=== PATIENT | female | born 1965 | race Caucasian/White ===

== ENCOUNTER → 2016-06-19 | Outpatient (REF) | payer OTHER ==
[2016-06-19 14:03] LABS: BASO # 0.1 K/mm3 (0.0-0.2); BASO % 1.3 % (0.0-1.0); EOS # 0.2 K/mm3 (0.0-0.50); EOS % 4.8 % (0.0-3.0); LARGE UNSTAINED CELL # 0.1 K/mm3 (0.0-0.4); LYMPH # 2.2 K/mm3 (1.5-4.5); LYMPH % 48.1 % (24.0-44.0); MEAN CORPUSCULAR HEMOGLOBIN 29.7 pg (27.0-33.0); MEAN CORPUSCULAR HGB CONC 33.2 g/dl (32.0-36.5); MEAN CORPUSCULAR VOLUME 89.4 fl (80.0-96.0); MONO # 0.2 K/mm3 (0.0-0.8); MONO % 5.6 % (0.0-5.0); NEUTROPHILS # 1.6 K/mm3 (1.8-7.7); NEUTROPHILS % 37.2 % (36.0-66.0); PLATELET COUNT, AUTOMATED 364 k/mm3 (150-450); RED CELL DISTRIBUTION WIDTH 13.6 % (11.5-14.5); WHITE BLOOD COUNT 4.3 K/mm3 (4.0-10.0)
[2016-06-19 14:27] LABS: ALBUMIN 3.9 GM/DL (3.2-5.2); ALBUMIN/GLOBULIN RATIO 1.05 (1.00-1.93); ALKALINE PHOSPHATASE 94 U/L (45-117); ALT/SGPT 29 U/L (12-78); ANION GAP 10 MEQ/L (8-16); AST/SGOT 15 U/L (15-37); BILIRUBIN,TOTAL 0.5 MG/DL (0.2-1.0); BLOOD UREA NITROGEN 14 MG/DL (7-18); CARBON DIOXIDE LEVEL 26 MEQ/L (21-32); CHLORIDE LEVEL 105 MEQ/L (98-107); CHOLESTEROL LEVEL 205 MG/DL (<200); CREATININE FOR GFR 0.91 MG/DL (0.55-1.02); GLOMERULAR FILTRATION RATE > 60.0 (>51); GLUCOSE, FASTING 87 MG/DL (70-105); POTASSIUM SERUM 4.2 MEQ/L (3.5-5.1); SODIUM LEVEL 141 MEQ/L (136-145); TOTAL PROTEIN 7.6 GM/DL (6.4-8.2); TRIGLYCERIDES LEVEL 93 MG/DL (<150)
== END ==
LOC: M LABDRAW1 13:38
PROVIDERS: ATTEND Family Medicine
DX: Z00.00 Encounter for general adult medical examination without abnormal findings (principal); Z11.3 Encounter for screening for infections with a predominantly sexual mode of transmission

== ENCOUNTER → 2016-07-15 | Outpatient (CLI) | payer OTHER ==
[~2016-07-15] VITALS: Ht 165.1 cm; Wt 83.9 kg
[~2016-07-15] MED LIST: AMLO5TAB2 PO; NS 1,000 ML IV SCH; VENL75TA2 PO
--- NOTE | 2016-07-15 10:50 | ROOR ---
Patient Name: Catina Rizvi Procedure Date: 07/15/2016 10:16 AM Date of : 1965 Age: 51 Room: [facility] Gender: Female Note Status: Finalized Procedure: Colonoscopy Indications: Screening for colorectal malignant neoplasm Providers: Anthony Ewing MD Referring MD: Millie Perez MD Requesting Provider: Medicines: Monitored Anesthesia Care Complications: No immediate complications. Procedure: Pre-Anesthesia Assessment: - Prior to the procedure, a History and Physical was performed, and patient medications and allergies were reviewed. The patient is competent. The risks and benefits of the procedure and the sedation options and risks were discussed with the patient. All questions were answered and informed consent was obtained. Patient identification and proposed procedure were verified by the physician, the nurse and the anesthesiologist in the endoscopy suite. Mental Status Examination: alert and oriented. Airway Examination: normal oropharyngeal airway and neck mobility. Respiratory Examination: clear to auscultation. CV Examination: normal. Prophylactic Antibiotics: The patient does not require prophylactic antibiotics. Prior Anticoagulants: The patient has taken no previous anticoagulant or antiplatelet agents. ASA Grade Assessment: II - A patient with mild systemic disease. After reviewing the risks and benefits, the patient was deemed in satisfactory condition to undergo the procedure. The anesthesia plan was to use monitored anesthesia care (MAC). Immediately prior to administration of medications, the patient was re-assessed for adequacy to receive sedatives. The heart rate, respiratory rate, oxygen saturations, blood pressure, adequacy of pulmonary ventilation, and response to care were monitored throughout the procedure. The physical status of the patient was re-assessed after the procedure. The Colonoscope was introduced through the anus and advanced to the cecum, identified by appendiceal orifice and ileocecal valve. The colonoscopy was technically difficult and complex due to significant looping. The patient tolerated the procedure well. The quality of the bowel preparation was good. Findings: The perianal and digital rectal examinations were normal. The colon (entire examined portion) appeared normal. No additional abnormalities were found on retroflexion. Impression: - The entire examined colon is normal. - No specimens collected. Recommendation: - Discharge patient to home (ambulatory). - Repeat colonoscopy in 10 years for screening purposes. Anthony Ewing MD Anthony Ewing MD 07/15/2016 10:49:51 AM This report has been signed electronically. Number of Addenda: 0 Note Initiated On: 07/15/2016 10:16 AM Estimated Blood Loss: Estimated blood loss: none.
[2016-07-15 11:15] VITALS: BP 158/98
== END | disposition home or self-care (01) ==
LOC: M OPP 08:50
PROVIDERS: ATTEND Surgery
DX: Z12.11 Encounter for screening for malignant neoplasm of colon (principal); I10 Essential (primary) hypertension; R12 Heartburn; F41.9 Anxiety disorder, unspecified; Z79.899 Other long term (current) drug therapy
CPT/HCPCS: 99156; 99157; G0121

== ENCOUNTER → 2016-12-02 | Outpatient (REF) | payer OTHER ==
[~2016-12-02] MED LIST changes: -NS 1,000 ML IV SCH
[2016-12-02 11:39] LABS: ALBUMIN 3.8 GM/DL (3.2-5.2); ALKALINE PHOSPHATASE 97 U/L (45-117); ALT/SGPT 29 U/L (12-78); ANION GAP 6 MEQ/L (8-16); AST/SGOT 13 U/L (15-37); BILIRUBIN,TOTAL 0.5 MG/DL (0.2-1.0); BLOOD UREA NITROGEN 14 MG/DL (7-18); CALCIUM LEVEL 9.5 MG/DL (8.5-10.1); CARBON DIOXIDE LEVEL 28 MEQ/L (21-32); CHLORIDE LEVEL 106 MEQ/L (98-107); CREATININE FOR GFR 0.86 MG/DL (0.55-1.02); GLOMERULAR FILTRATION RATE > 60.0 (>51); GLUCOSE, FASTING 96 MG/DL (70-105); POTASSIUM SERUM 4.5 MEQ/L (3.5-5.1); SODIUM LEVEL 140 MEQ/L (136-145); TOTAL PROTEIN 7.6 GM/DL (6.4-8.2)
[2016-12-09 00:07] LABS: Lyme Disease IgG/IgM Antibodie <0.91 ISR (0.00-0.90); Lyme Disease IgM Ab Quantitati <0.80 index (0.00-0.79); SJOGREN'S ANTI SS-A <0.2 AI (0.0-0.9); SJOGREN'S ANTI SS-B <0.2 AI (0.0-0.9)
== END ==
LOC: M LABDRAW1 11:04
PROVIDERS: ATTEND Family Medicine
DX: M12.9 Arthropathy, unspecified (principal); E55.9 Vitamin D deficiency, unspecified

== ENCOUNTER → 2017-12-06 | Outpatient (REF) | payer OTHER ==
[2017-12-09 14:44] LABS: HPV HYBRID CAPTURE II Negative (Negative)
== END ==
LOC: M LAB REF 13:59
DX: Z12.4 Encounter for screening for malignant neoplasm of cervix (principal); N88.8 Other specified noninflammatory disorders of cervix uteri
CPT/HCPCS: G0123

== ENCOUNTER → 2018-03-04 | Outpatient (CLI) | payer OTHER | LOC: M LRY 18:25 | DX: S59.912A Unspecified injury of left forearm, initial encounter (principal); X58.XXXA Exposure to other specified factors, initial encounter; Y92.9 Unspecified place or not applicable | CPT/HCPCS: 73090; G0463 ==

== ENCOUNTER 2019-04-17 06:37 | Inpatient (IN) | payer OTHER ==
[~2019-04-17] VITALS: Ht 165.1 cm; Wt 86.1 kg
[~2019-04-17 06:37] MED LIST changes: -AMLO5TAB2 PO; +AMLO5TAB6 PO
[2019-04-17 07:30] LABS: BASO % 0.4 % (0.0-1.0); EOS % 0.1 % (0.0-3.0); HEMATOCRIT 37.8 % (36.0-47.0); HEMOGLOBIN 12.7 g/dl (12.0-15.5); LYMPH # 0.8 10^3/uL (1.5-5.0); LYMPH % 8.8 % (24.0-44.0); MEAN CORPUSCULAR HGB CONC 33.6 g/dl (32.0-36.5); MEAN CORPUSCULAR VOLUME 89.4 fl (80.0-96.0); MONO # 0.5 10^3/uL (0.0-0.8); MONO % 4.8 % (0.0-5.0); NEUTROPHILS # 8.2 10^3/uL (1.5-8.5); NEUTROPHILS % 85.6 % (36.0-66.0); PLATELET COUNT, AUTOMATED 293 10^3/uL (150-450); RED BLOOD COUNT 4.23 10^6/uL (4.00-5.40); WHITE BLOOD COUNT 9.5 10^3/uL (4.0-10.0)
[2019-04-17] MEDS ORDERED: ISOVUE-370 76% 100ML VIAL (Q9967) As Ordered ONE (07:37)
[2019-04-17] MEDS ORDERED: KETOROLAC 30 MG/ML VIAL (J1885) IV ONE (07:45)
[2019-04-17 07:50] LABS: BLOOD UREA NITROGEN 15 MG/DL (7-18); CALCIUM LEVEL 9.1 MG/DL (8.5-10.1); CARBON DIOXIDE LEVEL 26 MEQ/L (21-32); CHLORIDE LEVEL 104 MEQ/L (98-107); CREATININE FOR GFR 0.79 MG/DL (0.55-1.30); GLOMERULAR FILTRATION RATE > 60.0 (>51); GLUCOSE, FASTING 149 MG/DL (70-100); POTASSIUM SERUM 3.7 MEQ/L (3.5-5.1); SODIUM LEVEL 137 MEQ/L (136-145)
[2019-04-17 07:51] LABS: ALBUMIN 3.6 GM/DL (3.2-5.2); ALT/SGPT 23 U/L (12-78); BILIRUBIN,DIRECT 0.1 MG/DL (0.0-0.2); BILIRUBIN,TOTAL 0.5 MG/DL (0.2-1.0); LIPASE 88 U/L (73-393); TOTAL PROTEIN 6.7 GM/DL (6.4-8.2)
--- NOTE | 2019-04-17 08:49 | REP ---
CT THORACIC ANGIOGRAM: With IV contrast. HISTORY: Midline abdominal pain. COMPARISON STUDIES: No comparison study. CONTRAST DOSE: 100 mL of Isovue [address] TECHNIQUE: Helical scanning is acquired and overlapping 1.5 mm and contiguous 3 mm axial images are reformatted. In addition, maximum intensity projection and multiplanar re-formation images are generated in sagittal and coronal imaging projections. CT ANGIOGRAPHIC FINDINGS: There is good opacification of the thoracic aorta. There is no evidence of aneurysm or dissection. Pulmonary arterial tree is well opacified as well. No vessel cutoff or filling defect is seen to suggest pulmonary embolism. Maximum intensity projection images show no vascular abnormality. There is a granulomatous calcification in the right upper lobe. The lung wynn are otherwise clear. There is no evidence of pleural or pericardial effusion. No hilar or mediastinal mass or adenopathy is observed. Visualized upper abdominal structures are remarkable for cholelithiasis and gallbladder wall thickening with pericholecystic fluid as described in the abdominal CT report. 3D surface rendered CT angiography images of the thoracoabdominal aorta and pelvic arteries are normal except that the renal arteries are duplicated bilaterally. No significant bony abnormality is seen. IMPRESSION: No CT evidence of pulmonary embolus or thoracic or abdominal aortic disease. Duplicated renal arteries bilaterally. Cholelithiasis with gallbladder wall thickening and pericholecystic fluid. Lung wynn are clear. Electronically Signed by Bernabe Cowan MD 04/17/2019 09:11 A
--- NOTE | 2019-04-17 09:24 | REP ---
CT abdomen and pelvis with IV but without oral contrast: History: Midline abdominal pain. No comparison abdomen CT. CT contrast dose: 100 mL of intravenous Isovue 370. CT findings: Digital preliminary rn long term care radiograph shows nonspecific central abdominal small bowel air filled loops. Axial CT images demonstrate mild diffuse fatty infiltration of the liver. The spleen is unremarkable. The gallbladder contains several large calculi which contain some air density centrally within them. This consistent with cholelithiasis. There is pericholecystic fluid. There is increased attenuation in the liver parenchyma adjacent to the gallbladder which is a typical pattern of fat sparing. No pancreatic abnormalities observed. No adrenal lesion is observed. The kidneys enhance symmetrically. They are morphologically intact. No retroperitoneal mass or adenopathy is seen. A normal appendix is seen in the right lower quadrant. The renal arteries are duplicated bilaterally. No uterine, ovarian, or urinary bladder abnormality is seen. No abdominal wall defect is seen. Small and large intestinal bowel loops are unremarkable except for air-fluid levels in the central abdominal small bowel loops. Impression: Multiple large gallstones in the gallbladder. Gallbladder wall thickening and pericholecystic fluid is seen. There is fatty infiltration of the liver with areas of fat sparing adjacent to the gallbladder. Small bowel gas pattern suggests ileus. Electronically Signed by Bernabe Cowan MD 04/17/2019 09:54 A
[2019-04-17] MEDS ORDERED: ONDANSETRON 4MG/2ML VIAL (J2405) IV ONE (10:45)
[2019-04-17] MEDS ORDERED: MORPHINE 4 MG/ML 1ML VIAL/SYRINGE (J2270) IV ONE (10:45)
[2019-04-17] MEDS ORDERED: C 50TAB PO (11:11)
[2019-04-17] MEDS ORDERED: VITA-144 PO (11:11)
[2019-04-17] MEDS ORDERED: MAGN400T3 PO (11:11)
[2019-04-17] MEDS ORDERED: MORPHINE 2 MG/ML 1ML VIAL (J2270) IV PRN (12:45)
[2019-04-17] MEDS ORDERED: ONDANSETRON 4MG/2ML VIAL (J2405) IV PRN ×2 (12:45→21:45)
[2019-04-17 13:15] VITALS: BP 157/71
[2019-04-17] MEDS: LR 1,000 ML IV SCH ×2 (13:35→21:00)
[2019-04-17] MEDS: KETOROLAC 30 MG/ML VIAL (J1885) IV PRN ×2 (13:45→14:41)
[2019-04-17] MEDS: AMPICILLIN SOD/SULBACTAM SOD 3 GM in D5W MINI-BAG PLUS 100 ML IV SCH ×2 (13:45→19:16)
--- NOTE | 2019-04-17 14:13 | HPE ---
DATE OF ADMISSION: 04/17/2019 ADMITTING DIAGNOSIS: Cholelithiasis with acute cholecystitis. HISTORY OF PRESENT ILLNESS: The patient reports that she has generally been in good health. On Wednesday, April 14 at about 06:00 p.m.. she noted the onset of severe epigastric and mid abdominal discomfort. She reports having had a burrito wrap for dinner and the pain began shortly thereafter. She denied any nausea or vomiting. The discomfort persisted overnight on Wednesday into Wednesday. Because of her continuing pain, she did not go to work on Wednesday. By Wednesday evening she reports that she felt better. She went to work Wednesday. 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 At about lunchtime, she had some rotisserie chicken and reports that her pain came back at about 3 o'clock in the afternoon on Wednesday the . Pain became very severe again in the epigastrium and this persisted all night. She was unable to sleep. She did not have definite nausea or vomiting but felt full and she reports that she did try to make herself vomit at one point. She did not notice fevers or chills. She has not noticed any change in the color of her urine. She had some [place] tea at about 4 o'clock in the morning on the but as her pain persisted she presented to the emergency department at about 06:30 in the morning. In the emergency department, she had some laboratory studies done. She was found to have tenderness on exam in the right subcostal area and in the epigastrium. A CT scan of the abdomen and pelvis was obtained, which revealed multiple large gallstones in the gallbladder with gallbladder wall thickening and pericholecystic fluid. I was consulted and the patient is now admitted with a diagnosis of cholelithiasis with acute cholecystitis for urgent cholecystectomy. ALLERGIES: The patient denies any known drug allergies. MEDICATIONS: The patient is only taking some vitamins and these include vitamin C, some magnesium oxide and some vitamin D3. MEDICAL HISTORY: The patient reports that she is healthy with no active medical problems. She specifically denies any heart, lung or endocrine issues. PAST SURGICAL HISTORY: The patient underwent a surgical procedure in 2000 for some sort of bladder suspension for stress urinary incontinence or cystocele. FAMILY HISTORY: Noncontributory. SOCIAL HISTORY: The patient denies any tobacco use or alcohol intake. REVIEW OF SYSTEMS: The patient denies any history of hepatitis, pancreatitis, or yellow jaundice. She denies any chest pain or palpitations. She has no shortness of breath or wheezing. She denies any melena or hematochezia. She had a bowel movement that was fairly normal 2 days ago. There is no history of peptic ulcer disease. There is no history of seizure, stroke or TIA. She has no history of deep vein thrombosis (DVT) or pulmonary embolus. She has no endocrine or orthopedic issues. PHYSICAL EXAMINATION: The patient is lying quietly on the hospital stretcher when I entered the room. She appears to be resting comfortably and reports that she had some morphine fairly recently. Vital signs show a temperature of 98.3, pulse of 54, respirations of 18 and blood pressure of 154/72. The patient is alert and oriented. Skin is warm and dry. Sclerae are anicteric. Mucous membranes are moist. Neck is supple without mass. She has no cervical bruit. Heart exam shows a regular rate and rhythm and she is not tachycardiac. The lungs are clear to auscultation bilaterally. The abdomen is flat. She does have a few soft bowel sounds present on auscultation. There is no tympany to percussion and no tenderness to percussion. On palpation the abdomen is soft throughout. She has some mild to moderate direct tenderness in the right subcostal region approximately 10-12 cm to the right of the midline. There is no mass appreciated and she has no guarding or rebound. Extremities show palpable radial and pedal pulses with no peripheral edema. LABORATORY STUDIES: CBC showing a white count of 9.5 with a differential showing 86% neutrophils, 9% lymphocytes of 5% monocytes. Hemoglobin is 13 with a hematocrit of 38 and platelet count is 293,000. Chemistry profile shows sodium of 137, potassium 3.7, chloride 104, CO2 of 26, BUN of 15, creatinine of 0.8 and a glucose of 149. Liver function tests are entirely normal. Lipase is normal at 88. Urinalysis showed a pH of 5, specific gravity 1.034. She had trace ketones and 1+ protein and the remainder of the urinalysis was normal. Imaging included a CT angiogram of the chest. This showed no evidence of pulmonary embolus or thoracic or abdominal aortic disease. Cholelithiasis with gallbladder wall thickening was noted. The lung wynn were clear. Her CT scan of the abdomen showed multiple large gallstones with gallbladder wall thickening. There was some fatty infiltration of the liver noted. IMPRESSION: The patient presented with greater than 12 hours of persistent severe epigastric and right upper quadrant pain. Her exam shows tenderness in the right subcostal area. She does seem to be somewhat more comfortable than what she reported when she first presented to the emergency room, but her CT scan does show large gallstones with gallbladder wall thickening and pericholecystic fluid. I think therefore the diagnosis of acute cholecystitis secondary to cholelithiasis is appropriate. PLAN: The patient was counseled that the best approach would be to proceed to cholecystectomy at the earliest opportunity. She will be kept n.p.o. for the rest of the day and started on antibiotics. She will receive some IV fluid maintenance. I counseled her for a laparoscopic cholecystectomy and she will be added onto the OR schedule to have that done later today. KIMBER
[2019-04-17 16:11] VITALS: BP 157/72
[2019-04-17 17:30] VITALS: BP 110/60
[2019-04-17] MEDS ORDERED: PROPOFOL 200 MG/20 ML VIAL As Ordered ONE (17:37)
[2019-04-17] MEDS ORDERED: ROCURONIUM BROMIDE 50 MG/5 ML VIAL As Ordered ONE ×2 (17:37→19:26)
[2019-04-17] MEDS ORDERED: MIDAZOLAM INJ 2 MG/2 ML VIAL (J2250) As Ordered ONE (17:37)
[2019-04-17] MEDS ORDERED: fentaNYL 250 MCG/5 ML INJECTION (J3010) As Ordered ONE (17:37)
[2019-04-17] MEDS ORDERED: LIDOCAINE 2% INJ 100 MG/5 ML SDV (FOR ANES.) As Ordered ONE (17:37)
[2019-04-17] MEDS ORDERED: BUPIVACAINE HCL 0.25% 30 ML VIAL As Ordered ONE (17:40)
[2019-04-17 18:20] VITALS: BP 150/69
[2019-04-17] MEDS ORDERED: UNASYN 1.5 GM VIAL As Ordered ONE (19:15)
[2019-04-17] MEDS ORDERED: dexameTHASONE 4 MG/ML 1ML VIAL (J1100) As Ordered ONE (19:28)
[2019-04-17] MEDS ORDERED: ONDANSETRON 4MG/2ML VIAL (J2405) As Ordered ONE (19:29)
[2019-04-17] MEDS ORDERED: ACETAMINOPHEN 1000MG 100ML IV BTL (OFIRMEV) (J0131 PER 10MG) As Ordered ONE (19:32)
[2019-04-17] MEDS ORDERED: MORPHINE 10 MG/ML 1ML VIAL (J2270) As Ordered ONE (19:52)
[2019-04-17] MEDS ORDERED: SUGAMMADEX SODIUM 500 MG/5 ML VIAL (BRIDION) As Ordered ONE (20:39)
[2019-04-17] MEDS ORDERED: KETOROLAC 60 MG/2 ML VIAL (J1885) As Ordered ONE (21:04)
[2019-04-17] MEDS ORDERED: LR 1,000 ML IV SCH (21:45)
[2019-04-17] MEDS ORDERED: HYDROMORPHONE HCL 0.5 MG/ 0.5 ML SYRINGE (J1170 PER 1) IV PRN (21:45)
[2019-04-17] MEDS ORDERED: fentaNYL 100 MCG/2 ML INJECTION (J3010) IV PRN (21:45)
[2019-04-17] MEDS ORDERED: ACETAMINOPHEN TAB 650MG DOSE (2X325MG) PO PRN (21:45)
[2019-04-17] MEDS ORDERED: NORCO, ANEXSIA 5/325MG TABLET (HYDROcodone/ACETAMINOPHEN) PO PRN (21:45)
[2019-04-17] MEDS ORDERED: PERCOCET 5MG/325MG TAB PO PRN (21:45)
[2019-04-17 22:30] VITALS: BP 110/61
[2019-04-17 23:00] VITALS: BP 108/53
[2019-04-18] VITALS (9 sets, daily range): BP systolic 102–138; BP diastolic 53–83
[2019-04-18] MEDS: LR 1,000 ML IV SCH ×2 (00:30→09:40)
[2019-04-18] MEDS: AMPICILLIN SOD/SULBACTAM SOD 3 GM in D5W MINI-BAG PLUS 100 ML IV SCH ×4 (01:17→18:41)
[2019-04-18 08:08] LABS: HEMATOCRIT 33.3 % (36.0-47.0); LYMPH # 0.7 10^3/uL (1.5-5.0); LYMPH % 9.3 % (24.0-44.0); MEAN CORPUSCULAR HEMOGLOBIN 29.6 pg (27.0-33.0); MEAN CORPUSCULAR VOLUME 89.8 fl (80.0-96.0); MONO # 0.5 10^3/uL (0.0-0.8); MONO % 5.7 % (0.0-5.0); NEUTROPHILS # 6.7 10^3/uL (1.5-8.5); NEUTROPHILS % 84.7 % (36.0-66.0); PLATELET COUNT, AUTOMATED 252 10^3/uL (150-450); RED BLOOD COUNT 3.71 10^6/uL (4.00-5.40)
[2019-04-18] MEDS: KETOROLAC 30 MG/ML VIAL (J1885) IV PRN ×2 (08:46→14:48)
[2019-04-18 08:50] LABS: ALBUMIN 2.7 GM/DL (3.2-5.2); ALT/SGPT 40 U/L (12-78); BILIRUBIN,TOTAL 0.4 MG/DL (0.2-1.0); BLOOD UREA NITROGEN 13 MG/DL (7-18); CALCIUM LEVEL 8.7 MG/DL (8.5-10.1); CARBON DIOXIDE LEVEL 28 MEQ/L (21-32); CHLORIDE LEVEL 104 MEQ/L (98-107); CREATININE FOR GFR 0.74 MG/DL (0.55-1.30); GLOMERULAR FILTRATION RATE > 60.0 (>51); GLUCOSE, FASTING 131 MG/DL (70-100); POTASSIUM SERUM 4.2 MEQ/L (3.5-5.1); SODIUM LEVEL 137 MEQ/L (136-145); TOTAL PROTEIN 5.8 GM/DL (6.4-8.2)
--- NOTE | 2019-04-18 11:56 | RO ---
DATE OF PROCEDURE: 04/17/2019 PREOPERATIVE DIAGNOSIS: Cholelithiasis with acute cholecystitis. POSTOPERATIVE DIAGNOSIS: Cholelithiasis with acute cholecystitis. PROCEDURE PERFORMED: Laparoscopic cholecystectomy. SURGEON: Ramakrishna Ayala MD ANESTHESIA: General. INDICATIONS FOR PROCEDURE: Patient is a 54-year-old woman who noted the onset of some severe epigastric abdominal pain on the evening of Wednesday the 14 of April. This persisted overnight and then seemed to wanes somewhat later on Wednesday the . The pain returned in the afternoon of Wednesday the and has persisted into the morning of the . She has some tenderness in the epigastrium and a CT scan showed multiple gallstones with significant gallbladder wall thickening consistent with acute cholecystitis. The patient was admitted and started on antibiotics and is now for a laparoscopic cholecystectomy. OPERATIVE PROCEDURE: The patient was brought to the operating room and placed on the table in a supine position. She was placed under general endotracheal anesthesia. The patient's abdomen was prepped and draped in a sterile fashion. 0.25% Marcaine was infiltrated at each of the trocar sites. A short supraumbilical midline incision was made and deepened to the fascia. A Veress needle was inserted and after positive hanging drop test, the abdomen was insufflated with carbon dioxide gas. An 11 mm port was placed over a 5 mm scope and advanced through the abdominal wall without difficulty. Initial examination showed a normal-appearing liver. There was abundant omental fat covering the small and large bowel. A portion of the stomach was seen and appeared normal. It was possible to see just the tip of the fundus of the gallbladder and this appeared inflamed with some exudate noted. The patient was tilted slightly to a reverse Trendelenburg position and rolled slightly to the left. Two 5 mm trocars were placed in the right upper quadrant and a third trocar was placed in the left upper quadrant. Graspers were inserted. The patient had some inflammatory attachments of the gallbladder to the surrounding omentum. These were divided with a combination of blunt and cautery dissection. The gallbladder was markedly distended and inflamed. An aspirating needle was inserted and some turbid brownish fluid was suctioned from the gallbladder. Only the tip of the fundus decompressed well and this was grasped and the gallbladder was elevated. There were significant adhesions down the gallbladder to the surrounding omentum and these were broken apart primarily bluntly. Gallbladder wall was markedly thickened with significant pericholecystic inflammatory change. I opened the peritoneum in the region of the gallbladder neck and began to peel away the surrounding pericholecystic fat. The peritoneum was opened up along the medial side of the gallbladder along the edge. The inflamed pericholecystic tissues near the gallbladder neck were peeled away primarily by blunt dissection to create a plane, but some areas were opened using the cautery. Dissection proceeded, though the marked thickening in the pericholecystic tissues made dissection very difficult. I elected to free the gallbladder as much as possible along the medial and lateral aspects. Along the medial aspect a cholecystic artery was transected and this was ultimately controlled using the cautery. The fundus was freed and the gallbladder was partially peeled away from the gallbladder bed. As dissection proceeded I could identify the level of the gallbladder neck where the cystic duct would arise, but this was encased in very dense inflamed tissue such that I could not identify the cystic duct. I therefore transected the gallbladder in the gallbladder neck, leaving a short cup shaped portion of the neck of the gallbladder attached in a surrounding area of inflamed tissue. The gallbladder dissection was then completed removing this from the gallbladder bed and the gallbladder was placed in an Endopouch. The right upper quadrant was copiously irrigated and several small bleeding points along the gallbladder bed were cauterized. I then inspected the small portion of the gallbladder neck that had been left in place. There did appear to be a orifice of the cystic duct contained within this piece of tissue with some backflow of a small amount of bile. With careful dissection, which was both sharp and blunt, I was able to peel the edges of this portion of the neck of the gallbladder away from the underlying fibrotic and inflamed tissue such that I could then place a #0 Vicryl Endoloop around this tissue to close off the cystic duct. This was accomplished and there was no further backflow of bile identified. The right upper quadrant was copiously irrigated with saline until clear. No further bleeding was identified. I elected to place a drain in the subhepatic space. Therefore, a 19-Macanese Abdoul drain was inserted and placed across the subhepatic space to exit out the lateral right upper quadrant trocar site. The patient was returned to a flat position. The abdomen was deflated and the trocars were removed. The gallbladder was recovered through the supraumbilical site. It was necessary to extend the skin and fascial incisions somewhat to allow the very large stones of the gallbladder to pass through the abdominal wall. I would estimate that the stones were up to 3-1/2 cm in maximal diameter. The drain was sutured to the skin with #2-0 silk. The fascia at the midline incision was closed with interrupted simple sutures of #1-0 Vicryl. The subcutaneous tissue was closed with several #2-0 Vicryl. Skin incisions were all closed with buried #4-0 Vicryl and Steri-Strips. The drain site was dressed with a chlorhexidine gluconate OpSite. The drain was connected to a Americo-Shah bulb. The patient tolerated the procedure well without apparent complication. She was awakened in the operating room, extubated and moved to the recovery room in stable condition. KIMBER
[2019-04-18] MEDS ORDERED: SLF 3 ML SYR IV PRN (16:45)
[2019-04-18] MEDS ORDERED: IBUPROFEN 600 MG TAB PO PRN (21:00)
[2019-04-18] MEDS: SLF 3 ML SYR IV SCH (21:34)
[2019-04-19] VITALS: BP 135/73
[2019-04-19] MEDS: AMPICILLIN SOD/SULBACTAM SOD 3 GM in D5W MINI-BAG PLUS 100 ML IV SCH ×2 (00:18→06:18)
[2019-04-19 06:00] VITALS: BP 135/65
[2019-04-19] MEDS: SLF 3 ML SYR IV SCH (06:18)
[2019-04-19 08:00] VITALS: BP 134/72
--- NOTE | 2019-04-19 08:49 | IPN ---
DATE: 04/18/2019 HISTORY: The patient was admitted yesterday with acute cholecystitis secondary to cholelithiasis. She underwent a laparoscopic cholecystectomy with finding of extensive inflammation and scarring around the gallbladder. It was necessary to transect the neck of the gallbladder and then free the edges of the gallbladder neck to place an Endoloop around this to seal the cystic duct. A drain was placed at the conclusion of the procedure. She has done well following surgery. She was continued on antibiotics postoperatively because of some spillage of bile from the gallbladder. Vital signs show that she has been afebrile since surgery. Her pulse is in the 50s and 60s and her blood pressure is normal. Room air oxygenation saturations are normal. Intake and output shows that she has been taking liquids well today. Her drain has had very little out and this is lightly bloody with no bilious coloration. Physical exam shows that she is alert and oriented. She appears much more comfortable compared to yesterday. Heart exam shows a regular rhythm and the lungs are clear. The abdomen is soft and without significant tenderness. Her drain has a minimal amount of pinkish fluid in the bulb. Laboratory studies this morning showed a white count of 8, hemoglobin of 11, hematocrit 33 and a platelet count of 252,000. Differential count showed 85% neutrophils, 9% lymphocytes and 6% monocytes. Her chemistry profile showed normal electrolytes, BUN, creatinine and a glucose of 131. Liver function tests are normal. IMPRESSION: The patient is doing well postoperative day #1 from a difficult laparoscopic cholecystectomy for severe acute cholecystitis. PLAN: The patient will be kept in the hospital another day and I will convert her to an inpatient status. She will be continued on her antibiotics for now and we will monitor the output from her drain. She will be allowed to take a regular diet as tolerated and is encouraged to be up ambulatory.
[2019-04-19] MEDS ORDERED: FLUBLOK(EGG FREE)(QUAD)INFLUENZA VACC 0.5ML SYRINGE (90682)18YRS&OLDER IM ONE (09:00)
== END 2019-04-19 09:50 | disposition home or self-care (01) | DRG 419 ==
LOC: M ED 06:37 → M SDC 12:49 → M PED 13:05 → M SDC 04-18 16:43 → M PED 04-18 16:44 → M SDC 04-19 06:43 → UNDOADMIN 04-19 06:43 → M PED 04-19 06:43 → UNDODISIN 04-19 09:50
PROVIDERS: ADMIT Surgery; ATTEND Surgery
PROC: 0FT44ZZ Resection of Gallbladder, Percutaneous Endoscopic Approach (ICD-10-PCS; principal; 2019-04-17 16:30)
DX: K80.62 Calculus of gallbladder and bile duct with acute cholecystitis without obstruction (principal)

== ENCOUNTER → 2020-08-06 | Outpatient (CLI) | payer OTHER ==
[~2020-08-06] MED LIST changes: +AMLO1TAB24 PO; -AMLO5TAB6 PO; +C 50TAB PO; +MAGN400T3 PO; +VITA-144 PO
[2020-08-06 12:51] LABS: BASO % 0.6 % (0.0-1.0); EOS # 0.1 10^3/uL (0.0-0.5); EOS % 1.3 % (0.0-3.0); HEMATOCRIT 41.4 % (36.0-47.0); HEMOGLOBIN 13.2 g/dl (12.0-15.5); LYMPH # 1.7 10^3/uL (1.5-5.0); LYMPH % 32.1 % (24.0-44.0); MEAN CORPUSCULAR HEMOGLOBIN 28.8 pg (27.0-33.0); MEAN CORPUSCULAR HGB CONC 31.9 g/dl (32.0-36.5); MEAN CORPUSCULAR VOLUME 90.4 fl (80.0-96.0); MONO # 0.4 10^3/uL (0.0-0.8); MONO % 6.5 % (2.0-8.0); NEUTROPHILS # 3.2 10^3/uL (1.5-8.5); NEUTROPHILS % 59.1 % (36.0-66.0); PLATELET COUNT, AUTOMATED 351 10^3/uL (150-450); RED BLOOD COUNT 4.58 10^6/uL (4.00-5.40); WHITE BLOOD COUNT 5.4 10^3/uL (4.0-10.0)
[2020-08-06 13:36] LABS: CHOLESTEROL LEVEL 226 MG/DL (<200); HDL CHOLESTEROL 81 MG/DL (>40); LDL CHOLESTEROL 122 MG/DL (<100); NON-HDL-C 145 MG/DL; RHEUMATOID FACTOR QUANT < 10.0 IU/ML (<15.0); TRIGLYCERIDES LEVEL 114 MG/DL (<150)
[2020-08-07 12:10] LABS: ANTINUCLEAR ANTIBODIES DIRECT Negative (Negative); SJOGREN'S ANTI SS-A <0.2 AI (0.0-0.9); SJOGREN'S ANTI SS-B <0.2 AI (0.0-0.9)
== END ==
LOC: M WUC 10:19
PROVIDERS: ATTEND Family Medicine
DX: M35.00 Sjogren syndrome, unspecified (principal); R03.0 Elevated blood-pressure reading, without diagnosis of hypertension; E55.9 Vitamin D deficiency, unspecified

== ENCOUNTER → 2020-09-05 | Outpatient (CLI) | payer OTHER ==
--- NOTE | 2020-09-05 09:26 | REPMRS ---
Patient History The patient states she has not had a clinical breast exam in over a year. Patient is postmenopausal and is nulliparous. Family history of breast cancer at age 44 in sister. 3D TOMOSYNTHESIS WAS PERFORMED. Volpara breast density b. Digital Woman Screen Mammo: September 05, 2020 - Exam #: [id number] Bilateral CC and MLO view(s) were taken. Technologist: Moraima Buckner, Technologist Prior study comparison: February 18, 2018, bilateral digital mammo screening bilat, performed at [facility]. December 03, 2016, bilateral digital mammo screening bilat, performed at [facility]. August 27, 2015, left breast diagnostic unilateral mammo, performed at [facility]. August 19, 2015, bilateral digital mammo screening bilat, performed at [facility]. FINDINGS: The breast tissue is heterogeneously dense. This may lower the sensitivity of mammography. There has been no change in the appearance of the mammogram from the prior studies. There is a moderate amount of residual fibroglandular tissue which is fairly symmetric. There is no interval development of dominant mass, areas of architectural distortion, or clustered microcalcification typical of malignancy. Assessment: BI-RADS/ACR category 1 mammogram. Negative Mammogram. Recommendation Routine screening mammogram in 1 year (for women over age 40). This mammogram was interpreted with the aid of an FDA-approved computer-aided dectection system. THE LIFETIME RISK OF BREAST CANCER IS 20.2%, THEREFORE SUPPLEMENTAL SCREENING MRI OF THE BREASTS IS RECOMMENDED IN 6 MONTHS. Electronically Signed By: James Negron MD 09/05/20 0258
== END ==
LOC: M WHC 06:51
PROVIDERS: ATTEND Family Medicine
DX: Z12.31 Encounter for screening mammogram for malignant neoplasm of breast (principal); Z80.3 Family history of malignant neoplasm of breast

== ENCOUNTER → 2021-04-03 | Outpatient (CLI) | payer OTHER ==
[~2021-04-03] MED LIST changes: -MAGN400T3 PO; +MAGN400T33 PO; +PROHANCE 279.3MG/ML 15ML VIAL As Ordered ONE; +PROHANCE 279.3MG/ML 5ML VIAL As Ordered ONE
--- NOTE | 2021-04-04 09:09 | REP ---
INDICATION: SCREENING, FAMILY HISTORY BREAST CA. COMPARISON: Mammogram 09/05/2020. TECHNIQUE: Three Elizabeth MRI imaging was performed with a dedicated breast coil. Axial, coronal, and sagittal T1 and T2 weighted scans were obtained with and without fat saturation in the usual fashion. The study includes dynamically acquired post gadolinium-enhanced imaging with image subtraction. Maximum intensity projection and multi planar reformation imaging is included as well. This study is interpreted with the aid of Helixis, an FDA approved computer aided detection (CAD) software program, on a dedicated breast MRI workstation. The gadolinium enhancement dose is 16 mL of intravenous ProHance. FINDINGS: Mild scattered fibroglandular tissue is present. There is mild background parenchymal enhancement. There is no axillary adenopathy. Multiple subcentimeter cysts are seen bilaterally. There is no suspicious enhancing mass or morphologic abnormality. IMPRESSION: BI-RADS category 2, benign bilateral breast MRI. Multiple subcentimeter cysts are seen bilaterally. There is no suspicious enhancing mass or morphologic abnormality. <Electronically signed by James Negron > 04/04/21 [id number]
== END ==
LOC: M RAD 14:30
PROVIDERS: ATTEND Family Medicine
DX: Z12.31 Encounter for screening mammogram for malignant neoplasm of breast (principal); N60.11 Diffuse cystic mastopathy of right breast; N60.12 Diffuse cystic mastopathy of left breast; Z80.3 Family history of malignant neoplasm of breast
CPT/HCPCS: A9576; C8908

== ENCOUNTER → 2021-08-20 | Outpatient (CLI) | payer OTHER ==
[~2021-08-20] MED LIST changes: -PROHANCE 279.3MG/ML 15ML VIAL As Ordered ONE; -PROHANCE 279.3MG/ML 5ML VIAL As Ordered ONE
[2021-08-20 11:52] LABS: BASO % 0.9 % (0.0-1.0); EOS # 0.2 10^3/uL (0.0-0.5); EOS % 3.5 % (0.0-3.0); HEMATOCRIT 41.6 % (36.0-47.0); HEMOGLOBIN 13.5 g/dl (12.0-15.5); LYMPH # 1.9 10^3/uL (1.5-5.0); LYMPH % 44.6 % (24.0-44.0); MEAN CORPUSCULAR HEMOGLOBIN 29.3 pg (27.0-33.0); MEAN CORPUSCULAR HGB CONC 32.5 g/dl (32.0-36.5); MEAN CORPUSCULAR VOLUME 90.4 fl (80.0-96.0); MONO # 0.3 10^3/uL (0.0-0.8); MONO % 7.7 % (2.0-8.0); NEUTROPHILS # 1.8 10^3/uL (1.5-8.5); NEUTROPHILS % 43.1 % (36.0-66.0); PLATELET COUNT, AUTOMATED 387 10^3/uL (150-450); WHITE BLOOD COUNT 4.3 10^3/uL (4.0-10.0)
[2021-08-20 12:06] LABS: HEMOGLOBIN A1c 5.9 %
[2021-08-20 12:30] LABS: CHOLESTEROL RISK RATIO 2.719 (<5); TOTAL 25(OH) VITAMIN D 34.6 NG/ML (30.0-100.0)
== END ==
LOC: M PLALAB 08:47
PROVIDERS: ATTEND Family Medicine
DX: Z00.00 Encounter for general adult medical examination without abnormal findings (principal); E55.9 Vitamin D deficiency, unspecified

== ENCOUNTER → 2022-02-12 | Outpatient (CLI) | payer OTHER | LOC: M WHC 07:07 | PROVIDERS: ATTEND Family Medicine | DX: Z12.31 Encounter for screening mammogram for malignant neoplasm of breast (principal) ==

== ENCOUNTER → 2022-05-14 | Outpatient (CLI) | payer OTHER | LOC: M PLAIMG 08:15 | PROVIDERS: ATTEND Family Medicine | DX: R05.3 Chronic cough (principal) ==

== ENCOUNTER → 2022-12-09 | Outpatient (REF) | payer OTHER | LOC: M LAB REF 17:57 | PROVIDERS: ATTEND Family Medicine | DX: Z12.4 Encounter for screening for malignant neoplasm of cervix (principal); N95.2 Postmenopausal atrophic vaginitis | CPT/HCPCS: 87624; G0123 ==

== ENCOUNTER → 2023-01-13 | Outpatient (REF) | payer OTHER ==
[2023-01-13 13:09] LABS: EOS # 0.2 10^3/uL (0.0-0.5); HEMATOCRIT 42.3 % (36.0-47.0); HEMOGLOBIN 13.6 g/dl (12.0-15.5); LYMPH # 1.9 10^3/uL (1.5-5.0); LYMPH % 46.2 % (24.0-44.0); MEAN CORPUSCULAR HEMOGLOBIN 28.8 pg (27.0-33.0); MEAN CORPUSCULAR HGB CONC 32.2 g/dl (32.0-36.5); MEAN CORPUSCULAR VOLUME 89.4 fl (80.0-96.0); MONO # 0.3 10^3/uL (0.0-0.8); MONO % 7.2 % (2.0-8.0); NEUTROPHILS # 1.6 10^3/uL (1.5-8.5); NEUTROPHILS % 40.4 % (36.0-66.0); PLATELET COUNT, AUTOMATED 322 10^3/uL (150-450); RED BLOOD COUNT 4.73 10^6/uL (4.00-5.40)
[2023-01-13 13:40] LABS: ALBUMIN 3.9 G/DL (3.2-5.2); ALKALINE PHOSPHATASE 79 U/L (46-116); ALT/SGPT 22 U/L (7.0-40); AST/SGOT 14 U/L (<34); BILIRUBIN,TOTAL 0.5 MG/DL (0.3-1.2); BLOOD UREA NITROGEN 17 MG/DL (9-23); CALCIUM LEVEL 9.5 MG/DL (8.5-10.1); CARBON DIOXIDE LEVEL 28 MMOL/L (20-31); CHLORIDE LEVEL 106 MMOL/L (98-107); CHOLESTEROL LEVEL 211 MG/DL (<200); CHOLESTEROL RISK RATIO 2.65 (<5); CREATININE FOR GFR 0.87 MG/DL (0.55-1.30); GLOMERULAR FILTRATION RATE > 60.0 (>51); GLUCOSE, FASTING 96 MG/DL (60-100); HDL CHOLESTEROL 79.4 MG/DL (>40); LDL CHOLESTEROL 115.2 MG/DL (<100); NON-HDL-C 131.6 MG/DL; POTASSIUM SERUM 4.4 MMOL/L (3.5-5.1); SODIUM LEVEL 141 MMOL/L (136-145); TOTAL PROTEIN 7.2 G/DL (5.7-8.2); TRIGLYCERIDES LEVEL 82 MG/DL (<150)
[2023-01-13 13:42] LABS: THYROID STIMULATING HORMONE 1.765 uIU/ML (0.55-4.78)
== END ==
LOC: M LABDRAWC 11:47
PROVIDERS: ATTEND Family Medicine
DX: Z01.419 Encounter for gynecological examination (general) (routine) without abnormal findings (principal); E55.9 Vitamin D deficiency, unspecified; R53.83 Other fatigue

== ENCOUNTER → 2023-02-15 | Outpatient (CLI) | payer OTHER | LOC: M WHC 07:38 | PROVIDERS: ATTEND Family Medicine | DX: Z12.31 Encounter for screening mammogram for malignant neoplasm of breast (principal); Z80.3 Family history of malignant neoplasm of breast; Z80.42 Family history of malignant neoplasm of prostate ==

== ENCOUNTER → 2023-07-21 | Outpatient (CLI) | payer OTHER ==
[~2023-07-21] MED LIST changes: +ADVA115A INH; +PROA1AER2 IN; +PROHANCE 279.3MG/ML 15ML VIAL ONE; +TOLT4CAP3 PO; +VITA100093 PO
== END ==
LOC: M PLAIMG 13:32
PROVIDERS: ATTEND Family Medicine
DX: R42 Dizziness and giddiness (principal); Z80.8 Family history of malignant neoplasm of other organs or systems; R90.82 White matter disease, unspecified
CPT/HCPCS: 70544; 70553; A9576

== ENCOUNTER → 2024-02-22 | Outpatient (CLI) | payer OTHER ==
[~2024-02-22] MED LIST changes: -PROHANCE 279.3MG/ML 15ML VIAL ONE
== END ==
LOC: M WHC 14:29
PROVIDERS: ATTEND Family Medicine
DX: Z12.31 Encounter for screening mammogram for malignant neoplasm of breast (principal); R92.323 Mammographic fibroglandular density, bilateral breasts

== ENCOUNTER → 2025-02-08 | Outpatient (REF) | payer OTHER ==
[2025-02-08 15:40] LABS: BASO # 0.1 10^3/uL (0.0-0.2); BASO % 1.1 % (0.0-1.0); EOS # 0.2 10^3/uL (0.0-0.5); EOS % 4.0 % (0.0-3.0); LYMPH # 2.1 10^3/uL (1.5-5.0); LYMPH % 46.4 % (24.0-44.0); MONO # 0.3 10^3/uL (0.0-0.8); MONO % 7.3 % (2.0-8.0); NEUTROPHILS # 1.9 10^3/uL (1.5-8.5); NEUTROPHILS % 41.0 % (36.0-66.0); PLATELET COUNT, AUTOMATED 374 10^3/uL (150-450)
[2025-02-08 15:42] LABS: ALT/SGPT 27.0 U/L (7.0-40); AST/SGOT 23.0 U/L (<34); CALCIUM LEVEL 9.5 MG/DL (8.3-10.6); CARBON DIOXIDE LEVEL 27.0 MMOL/L (20-31); CHLORIDE LEVEL 106.0 MMOL/L (98-107); CHOLESTEROL LEVEL 198.0 MG/DL (<200); CHOLESTEROL RISK RATIO 2.48 (<5); CREATININE FOR GFR 0.86 MG/DL (0.55-1.30); GLOMERULAR FILTRATION RATE 76.8 (>45); LDL CHOLESTEROL 104.8 MG/DL (<100); MAGNESIUM LEVEL 2.4 MG/DL (1.8-2.4); NON-HDL-C 118.2 MG/DL; POTASSIUM SERUM 4.5 MMOL/L (3.5-5.1); SODIUM LEVEL 143.0 MMOL/L (136-145); TRIGLYCERIDES LEVEL 67.0 MG/DL (<150)
[2025-02-08 15:43] LABS: FREE T4 1.48 NG/DL (0.89-1.76)
[2025-02-08 15:44] LABS: TOTAL 25(OH) VITAMIN D 29.3 NG/ML (20.0-100.0)
== END ==
LOC: M LAB REF 12:19
PROVIDERS: ATTEND Family Medicine
DX: Z00.00 Encounter for general adult medical examination without abnormal findings (principal)

== ENCOUNTER → 2025-02-22 | Outpatient (CLI) | payer OTHER | LOC: M WHC 07:07 | PROVIDERS: ATTEND Family Medicine | DX: Z12.31 Encounter for screening mammogram for malignant neoplasm of breast (principal) ==

== ENCOUNTER → 2025-04-23 | Outpatient (CLI) | payer OTHER ==
[2025-04-23 12:16] LABS: APPEARANCE, URINE CLOUDY (CLEAR); BACTERIA, URINE AUTO NEGATIVE (NEGATIVE); BILIRUBIN, URINE AUTO NEGATIVE (NEGATIVE); BLOOD, URINE BLOOD NEGATIVE (NEGATIVE); GLUCOSE, URINE (UA) AUTO NEGATIVE (NEGATIVE); KETONE, URINE AUTO NEGATIVE (NEGATIVE); LEUKOCYTE ESTERASE, URINE AUTO NEGATIVE (NEGATIVE); MUCUS, URINE SMALL (NEGATIVE); NITRITE, URINE AUTO NEGATIVE (NEGATIVE); PROTEIN, URINE AUTO NEGATIVE (NEGATIVE); RBC, URINE AUTO 1 /HPF (0-3); SPECIFIC GRAVITY URINE AUTO 1.019 (1.002-1.035); SQUAMOUS EPITHELIAL CELL UR AU 0 /HPF (0-6); UROBILINOGEN, URINE AUTO 0.2 mg/dL (0.0-2.0); WBC, URINE AUTO 1 /HPF (0-3)
[2025-04-23 12:19] LABS: BASO # 0.0 10^3/uL (0.0-0.2); BASO % 0.6 % (0.0-1.0); EOS # 0.2 10^3/uL (0.0-0.5); EOS % 3.3 % (0.0-3.0); LYMPH # 2.1 10^3/uL (1.5-5.0); LYMPH % 41.8 % (24.0-44.0); MONO # 0.3 10^3/uL (0.0-0.8); MONO % 6.5 % (2.0-8.0); NEUTROPHILS # 2.3 10^3/uL (1.5-8.5); NEUTROPHILS % 47.6 % (36.0-66.0); PLATELET COUNT, AUTOMATED 365 10^3/uL (150-450)
[2025-04-23 12:22] LABS: ALT/SGPT 21.0 U/L (7.0-40); AST/SGOT 19.0 U/L (<34); CALCIUM LEVEL 9.0 MG/DL (8.3-10.6); CARBON DIOXIDE LEVEL 28.0 MMOL/L (20-31); CHLORIDE LEVEL 102.0 MMOL/L (98-107); CREATININE FOR GFR 0.85 MG/DL (0.55-1.30); GLOMERULAR FILTRATION RATE 77.4 (>45); POTASSIUM SERUM 4.4 MMOL/L (3.5-5.1); SODIUM LEVEL 138.0 MMOL/L (136-145)
== END ==
LOC: M LABDRAWC 07:50
PROVIDERS: ATTEND Orthopaedic Surgery
DX: M75.22 Bicipital tendinitis, left shoulder (principal)